=== PATIENT | male | born 1950 | race Caucasian/White ===

== ENCOUNTER 2017-07-22 09:07 | Outpatient (CLI) | payer OTHER ==
--- NOTE | 2017-07-22 09:47 | RAD ---
CHEST TWO VIEWS: History: Dyspnea. Comparison: 2007 FINDINGS: There is a new right bibasilar airspace opacity. There is chronic change at the left lung base. No pn eumothorax. Bones are osteopenic. IMPRESSION: Right basilar airspace opacity concerning for infection. Follow up after treatment recommended. POS: [facility]
== END 2017-07-22 09:08 | disposition home or self-care (01) ==
LOC: RAD 09:07
PROVIDERS: ATTEND Internal Medicine Critical Care Medicine
DX: R06.00 Dyspnea, unspecified (principal)
CPT/HCPCS: 71046

== ENCOUNTER 2017-09-17 12:39 | Outpatient (CLI) | payer OTHER ==
--- NOTE | 2017-09-17 14:58 | RAD ---
PA AND LATERAL CHEST: Date: 09/17/17 HISTORY: Dyspnea. COMPARISON: 07/22/17. FINDINGS: Postsurgical changes related to anterior cervical fusion lower cervical spine are again present. The cardiac silhouette and pulmonary vasculature are within normal limits. There is minimal linear scarri ng at the left lung base. The lungs are otherwise clear. The patchy opacity in the region of the righ t middle lobe on the prior exam is no longer seen, likely related to resolution of area of pneumoniti s or atelectasis. No other interval change. IMPRESSION: No acute cardiopulmonary process. POS: [facility]
== END 2017-09-17 12:40 | disposition home or self-care (01) ==
LOC: RAD 12:39
PROVIDERS: ATTEND Internal Medicine Critical Care Medicine
DX: R06.00 Dyspnea, unspecified (principal)
CPT/HCPCS: 71046

== ENCOUNTER 2018-03-03 11:22 | Outpatient (CLI) | payer OTHER ==
--- NOTE | 2018-03-03 12:24 | EKG ---
Test Reason : Blood Pressure : / mmHG Vent. Rate : 044 BPM Atrial Rate : 044 BPM P-R Int : 166 ms QRS Dur : 120 ms QT Int : 460 ms P-R-T Axes : 019 056 048 degrees QTc Int : 393 ms Marked sinus bradycardia Non-specific intra-ventricular conduction delay J point elevation suggests early repolarization. Abnormal ECG When compared with ECG of 21-JAN-2009 00:02, No significant change was found Confirmed by SALEEM ROBLERO ([id number]) on 03/03/2018 12:23:49 PM Referred By: JADEN Confirmed By:SALEEM ROBLERO
[2018-03-03 13:03] LABS: #Eosinphils 0.1 thou/uL (0.0-0.7); #Lymphocytes 1.9 thou/uL (1.20-3.40); #Monocytes 0.6 thou/uL (0.11-0.59); #Neutrophils 5.2 thou/uL (1.40-6.50); %Basophils 0.5 % (0.0-1.0); %Eosinophils 1.9 % (0.0-10.0); %Lymphocytes 24.2 % (21.0-51.0); %Monocytes 7.4 % (0.0-10.0); Hemoglobin 12.2 g/dL (14.0-18.0); Mean Corpuscular HGB CONC 35.5 g/dL (32.0-36.0); Mean Corpuscular Hemoglobin 33.9 pg (27.0-31.0); Mean Corpuscular Volume 95.5 fL (78.0-98.0); Platelet Count 289 thou/uL (130-400); RBC Distribution Width 12.7 % (11.5-14.5); Red Blood Cell (RBC) Count 3.61 mill/uL (4.70-6.10); White Blood Cell (WBC) Count 7.9 thou/uL (4.8-10.8)
== END 2018-03-03 11:23 | disposition home or self-care (01) ==
LOC: LABBT 11:22
PROVIDERS: ATTEND Surgery
DX: Z01.818 Encounter for other preprocedural examination (principal); K40.90 Unilateral inguinal hernia, without obstruction or gangrene, not specified as recurrent
CPT/HCPCS: 85025; 93005; 93010

== ENCOUNTER 2018-03-11 06:00 | Day surgery (SDC) | payer OTHER ==
[2018-03-03 11:16] VITALS: BMI 24.3
[2018-03-11] MEDS ORDERED: CEFAZOLIN/Water 2 GM/20 ML SYRINGE ONE (06:08)
[2018-03-11] MEDS ORDERED: Midazolam HCl 2 mg/2 ml Vial ONE (06:27)
[2018-03-11] MEDS ORDERED: Fentanyl 100 MCG/2 ML VIAL ONE (06:27)
[2018-03-11] MEDS ORDERED: Propofol 500 MG/50 ML VIAL ONE (06:27)
[2018-03-11] MEDS ORDERED: Bupivacaine/Epinephrine 0.25% 30 ML VIAL ONE (06:42)
--- NOTE | 2018-03-11 07:25 | HP ---
CHIEF COMPLAINT: Left inguinal hernia. PRESENT ILLNESS: The patient is a 67-year-old male who noticed a bulge in his left groin and was fou nd to have a hernia. It is causing discomfort. It is reducible. No right sided symptoms. PAST MEDICAL HISTORY: Hypertension. 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 MEDICATIONS: Avapro, Lipitor, multivitamins, aspirin. FAMILY HISTORY: Hypertension and lung cancer. SOCIAL HISTORY: He is . No tobacco, occasional alcohol. ALLERGIES: No known drug allergies. PHYSICAL EXAMINATION: GENERAL: Well-developed, well-nourished male in no apparent distress. HEENT: Unremarkable. LUNGS: Clear. HEART: Regular rate and rhythm. ABDOMEN: Soft, nondistended, nontender. He has a reducible left inguinal hernia. No right-sided he rnia. EXTREMITIES: Unremarkable. ASSESSMENT: Left inguinal hernia. PLAN: Left inguinal hernia repair with mesh. CONSENT: I have discussed the planned procedure as well as risk of bleeding, infection, injury to ne rve, recurrence of hernia. He understands and gives informed consent.
--- NOTE | 2018-03-11 09:02 | OP ---
DATE OF PROCEDURE: 03/11/2018 PREOPERATIVE DIAGNOSIS: Left inguinal hernia. SURGEON: Fabián Devi M.D. PROCEDURE PERFORMED: Left inguinal hernia repair with mesh. INDICATIONS: This is a 67-year-old male who had a painful left inguinal hernia for several months. FINDINGS: There was actually a sliding indirect left inguinal hernia containing sigmoid colon. DESCRIPTION OF PROCEDURE: After informed consent was obtained, the patient was taken to the operatin g room and given total intravenous anesthesia, placed in supine position. Left groin was prepped and draped in usual fashion. Local anesthesia infiltrated subcutaneously and deep utilizing 0.5% Marcai ne. A transverse left inguinal incision was performed. Subcu divided sharply. The fascia of the ex ternal oblique was incised in direction of its fibers through the external ring. The spermatic cord was very dilated. It was dissected out and cremasteric fibers were to reveal a hernia sac, part of the wall included the sigmoid colon. This was dissected down to the internal ring and reduc ed. Reduction was maintained utilizing PHS extended mesh. The posterior layer was placed in the pre peritoneal space. Anterior was laid out, sutured the pubic tubercle medially and tucked under the ex ternal oblique fascia laterally. The cord placed anatomic and the external oblique fascia closed wit h a running 3-0 Vicryl. Quintin's closed with interrupted 3-0 Vicryl and the skin closed with a runni ng subcuticular 4-0 Rapide. Steri-Strips applied. Sterile bandage applied. The patient tolerated t he procedure well and was transferred to recovery in good condition. Sponge and needle count verifie d correct x2.
[2018-03-11] MEDS ORDERED: HYDROcodone/Acetaminophen 10/325 mg Tablet ONE (09:39)
[2018-03-11] MEDS ORDERED: Ketorolac Tromethamine 30 MG/ML VIAL ONE (11:22)
[2018-03-11] MEDS ORDERED: PROPOFOL 200 MG/20 ML VIAL ONE (11:22)
[2018-03-11] MEDS ORDERED: Ondansetron HCl/PF 4 MG/2 ML Vial ONE (11:22)
== END 2018-03-11 11:12 | disposition home or self-care (01) ==
LOC: SDC 06:00
PROVIDERS: ATTEND Surgery
PROC: 0YU60JZ Supplement Left Inguinal Region with Synthetic Substitute, Open Approach (ICD-10-PCS; principal; 2018-03-11)
DX: K40.90 Unilateral inguinal hernia, without obstruction or gangrene, not specified as recurrent (principal); I10 Essential (primary) hypertension; Z98.890 Other specified postprocedural states; Z79.82 Long term (current) use of aspirin; Z79.899 Other long term (current) drug therapy; Z87.891 Personal history of nicotine dependence
CPT/HCPCS: C1781; J1885; J2250; J2405; J2704; J3010

== ENCOUNTER 2018-07-30 08:03 | Outpatient (CLI) | payer OTHER ==
--- NOTE | 2018-07-30 10:42 | MRI ---
NONCONTRAST MRI LUMBAR SPINE: Date: 07/30/18 HISTORY: Lumbar radiculopathy. Patient is having low back pain and left thigh pain for 6 weeks. COMPARISON: None available. FINDINGS: Retroperitoneal structures demonstrate a normal MRI appearance. Conus medullaris is normal in appearance and terminates at the T12-L1 level. Prominent Schmorl's node seen in the inferior end plate of the L3 vertebral body with degenerative ch anges also present at this level. Mild end plate degenerative changes are present at the T11-12 level . L1-2 Level: There is a mild disc osteophyte complex with minimal facet degenerative changes. There i s only slight effacement of the ventral aspect of the central spinal canal. There is mild right-sided neural foraminal narrowing, but the left neural foramen is patent. L2-3 Level: There is mild broad based disc osteophyte complex. There are facet hypertrophic changes and mild ligamentous thickening. Generalized mild narrowing of the central spinal canal is present. T here is mild bilateral neural foraminal narrowing seen. L3-4 Level: There is a broad based disc osteophyte complex and facet hypertrophic changes, greater o n the left. Ligamentous thickening is noted. Findings do result in moderate narrowing of the central spinal canal. There is mild right and moderate to severe left-sided neural foraminal narrowing. L4-5 Level: There is a disc osteophyte complex with tiny central disc protrusion with associated sma ll annular tear. There is facet hypertrophic change and ligamentous thickening. Moderate narrowing of the central spinal canal is present. There is moderate to severe bilateral neural foraminal narrowin g. L5-S1 Level: There is no significant disc bulge or disc herniation. Facet hypertrophic changes are s een. Fluid signal intensity is seen in a left-sided facet joint. The central spinal canal is patent. There is minimal right and mild left-sided neural foraminal narrowing. IMPRESSION: Multilevel degenerative changes in the lumbar spine, greatest at the L3-4 and L4-5 levels, where ther e are moderate to severe degrees of neural foraminal narrowing present as described above. POS: [facility]
== END 2018-07-30 08:04 | disposition home or self-care (01) ==
LOC: SCSMRI 08:03
PROVIDERS: ATTEND Orthopaedic Surgery
DX: M47.26 Other spondylosis with radiculopathy, lumbar region (principal); M48.061 Spinal stenosis, lumbar region without neurogenic claudication; M48.07 Spinal stenosis, lumbosacral region
CPT/HCPCS: 72148

== ENCOUNTER 2023-03-17 08:53 | Outpatient (CLI) | payer MEDICARE | END 2023-03-17 08:54 | disposition home or self-care (01) | LOC: BICMAMMO 08:53 | PROVIDERS: ATTEND Internal Medicine Rheumatology | DX: M81.0 Age-related osteoporosis without current pathological fracture (principal); M85.852 Other specified disorders of bone density and structure, left thigh | CPT/HCPCS: 77080 ==

== ENCOUNTER 2023-04-06 09:51 | Outpatient (CLI) | payer MEDICARE ==
[~2023-04-06 09:51] MED LIST: Magnevist 469MG/ML 20 ML VIAL ONE
== END 2023-04-06 09:52 | disposition home or self-care (01) ==
LOC: BICMRI 09:51
PROVIDERS: ATTEND Orthopaedic Surgery
DX: R22.32 Localized swelling, mass and lump, left upper limb (principal); M79.89 Other specified soft tissue disorders
CPT/HCPCS: 82565; A9579